=== PATIENT | male | born 1990 | race Caucasian/White ===

== ENCOUNTER 2018-10-04 01:38 | Emergency (ER) | payer MEDICAID ==
[2018-10-04] MEDS ORDERED: FAMOTIDINE 20 MG/NACL 50 ML IV ONE (02:03)
[2018-10-04] MEDS ORDERED: NS 1,000 ML IV ONE ×2 (02:03)
[2018-10-04] MEDS ORDERED: ONDANSETRON 4 MG/2 ML VIAL IVP ONE (02:03)
--- NOTE | 2018-10-04 02:03 | EDPHY ---
H & P Stated Complaint: ABD FLU SX/BLOODY EMESIS TODAY Time Seen by Provider: 10/04/18 02:03 HPI/ROS: HPI CHIEF COMPLAINT: Flu, nausea vomiting. HISTORY OF PRESENT ILLNESS: 27-year-old male, otherwise healthy does have a history of psoriasis but not on any immunomodulators, presents emergency room with nausea vomiting. The patient states that he has been feeling ill for the past 3 days and was diagnosed with the flu at urgent care yesterday influenza a positive. He is on Tamiflu. He reports that he has been vomiting he states he vomited 2-3 times tonight. On his 2nd episode of vomiting he noticed some blood in his vomit. Describes it is dark. He has been drinking lots of fluids. As well as Gatorade. He denies current fever, denies chest pain or shortness of breath, denies productive cough. His main complaint is nausea vomiting and feeling flushed. Past Medical History: Denies significant medical history Past Surgical History: Denies significant surgical history Social History: Smokes tobacco 3 cigarettes per day. Denies illicit drugs or alcohol. Family History: Noncontributory ROS REVIEW OF SYSTEMS: 10 Systems were reviewed and negative with the exception of the elements mentioned in the history of present illness. Exam Constitutional triage nursing summary reviewed, vital signs reviewed, awake/ alert. Vital signs noted at triage. Eyes normal conjunctivae and sclera, EOMI, PERRLA. HENT normal inspection, atraumatic, moist mucus membranes, no epistaxis, neck supple/ no meningismus, no raccoon eyes. Respiratory clear to auscultation bilaterally, normal breath sounds, no respiratory distress, no wheezing. Cardiovascular rate normal, regular rhythm, no murmur, no edema, distal pulses normal. Gastrointestinal soft, non-tender, no rebound, no guarding, normal bowel sounds, no distension, no pulsatile mass. Genitourinary no CVA tenderness. Musculoskeletal no midline vertebral tenderness, full range of motion, no calf swelling, no tenderness of extremities, no meningismus, good pulses, neurovascularly intact. Skin pink, warm, & dry, no rash, skin atraumatic. Neurologic awake, alert and oriented x 3, AAOx3, moves all 4 extremities equally, motor intact, sensory intact, CN II-XII intact, normal cerebellar, normal vision, normal speech. Psychiatric normal mood/affect. Heme/Lymph/Immune no lymphadenopathy. Differential Diagnosis: Differential diagnosis includes but is not limited to and in no particular order: Influenza a, dehydration, electrolyte disturbance, nausea vomiting from Tamiflu, gastritis, Susy-Lazcano tear, peptic ulcer disease, Bowel obstruction, appendicitis, gallbladder disease, diverticulitis, colitis, enteritis, perforated viscus, gastritis, GERD, esophagitis, urinary tract infection, pyelonephritis, kidney stones Medical Decision Making: Plan for this patient IV establishment IV fluid bolus 2 L normal saline, IV Zofran for nausea, IV Pepcid for upset stomach, basic blood work and re-evaluate. Re-evaluation: 1516: Patient re-evaluated this time is feeling much better after IV fluids 2 L normal saline, IV Zofran 4 mg and IV Pepcid . He is asking to drink something. On re-examination abdomen is soft nontender. He is not vomiting he states he feels much better and he would like to go home. I believe it is vomiting is from flu as well as taking Tamiflu. I recommend bland diet over the next 24-48 hours. Return emergency room if worsening abdominal pain, fever, vomiting Patient is comfortable this plan. Source: Patient - Personal History Current Tetanus Diphtheria and Acellular Pertussis (TDAP): No - Medical/Surgical History Hx Asthma: No Hx Chronic Respiratory Disease: No Hx Diabetes: No Hx Cardiac Disease: No Hx Renal Disease: No Hx Cirrhosis: No Hx Alcoholism: No Hx HIV/AIDS: No Hx Splenectomy or Spleen Trauma: No Other PMH: DENIES - Social History Smoking Status: Light smoker Constitutional: Initial Vital Signs Temperature (C) 36.7 C 10/04/18 01:43 Heart Rate 100 10/04/18 01:43 Respiratory Rate 16 10/04/18 01:43 Blood Pressure 139/84 H 10/04/18 01:43 O2 Sat (%) 96 10/04/18 01:43 O2 Delivery Mode Room Air Allergies/Adverse Reactions: Sulfa (Sulfonamide Antibiotics) Allergy (Verified 10/04/18 01:41) Home Medications: Medication Instructions Recorded NK [No Known Home Meds] 10/04/18 Medical Decision Making - Data Points Laboratory Results: Laboratory Results 10/04/18 02:20 10/04/18 02:20 10/04/18 10/04/18 02:20 02:20 WBC 6.56 10^3/uL 10^3/uL (3.80-9.50) RBC 5.57 10^6/uL 10^6/uL (4.40-6.38) Hgb 18.0 g/dL H g/dL (13.7-17.5) Hct 51.4 % H % (40.0-51.0) MCV 92.3 fL fL (81.5-99.8) MCH 32.3 pg pg (27.9-34.1) MCHC 35.0 g/dL g/dL (32.4-36.7) RDW 12.6 % % (11.5-15.2) Plt Count 160 10^3/uL 10^3/uL (150-400) MPV 8.9 fL fL (8.7-11.7) Neut % (Auto) 69.7 % % (39.3-74.2) Lymph % (Auto) 19.7 % % (15.0-45.0) Story % (Auto) 9.6 % % (4.5-13.0) Eos % (Auto) 0.5 % L % (0.6-7.6) Baso % (Auto) 0.3 % % (0.3-1.7) Nucleat RBC Rel Count 0.0 % % (0.0-0.2) Absolute Neuts (auto) 4.58 10^3/uL 10^3/uL (1.70-6.50) Absolute Lymphs (auto) 1.29 10^3/uL 10^3/uL (1.00-3.00) Absolute Monos (auto) 0.63 10^3/uL 10^3/uL (0.30-0.80) Absolute Eos (auto) 0.03 10^3/uL 10^3/uL (0.03-0.40) Absolute Basos (auto) 0.02 10^3/uL 10^3/uL (0.02-0.10) Absolute Nucleated RBC 0.00 10^3/uL 10^3/uL (0-0.01) Immature Gran % 0.2 % % (0.0-1.1) Immature Gran # 0.01 10^3/uL 10^3/uL (0.00-0.10) Sodium 141 mEq/L mEq/L (135-145) Potassium 3.4 mEq/L L mEq/L (3.5-5.2) Chloride 104 mEq/L mEq/L (97-110) Carbon Dioxide 26 mEq/l mEq/l (22-31) Anion Gap 11 mEq/L mEq/L (6-14) BUN 18 mg/dL mg/dL (7-23) Creatinine 0.9 mg/dL mg/dL (0.7-1.3) Estimated GFR > 60 Glucose 103 mg/dL H mg/dL (70-100) Calcium 9.3 mg/dL mg/dL (8.5-10.4) Total Bilirubin 0.8 mg/dL mg/dL (0.1-1.4) Conjugated Bilirubin 0.4 mg/dL mg/dL (0.0-0.5) Unconjugated Bilirubin 0.4 mg/dL mg/dL (0.0-1.1) AST 32 IU/L IU/L (17-59) ALT 39 IU/L IU/L (21-72) Alkaline Phosphatase 62 IU/L IU/L (38-126) Total Protein 7.6 g/dL g/dL (6.3-8.2) Albumin 4.4 g/dL g/dL (3.5-5.0) Lipase 53 IU/L IU/L (23-300) Medications Given: Discontinued Medications Sodium Chloride (Ns) 1,000 mls @ 0 mls/hr IV EDNOW ONE; Wide Open PRN Reason: Protocol Stop: 10/04/18 02:04 Last Admin: 10/04/18 02:18 Dose: 1,000 mls Sodium Chloride (Ns) 1,000 mls @ 0 mls/hr IV EDNOW ONE; Wide Open PRN Reason: Protocol Stop: 10/04/18 02:04 Last Admin: 10/04/18 02:19 Dose: 1,000 mls Famotidine/Sodium Chloride (Pepcid 20 Mg (Premix)) 50 mls @ 200 mls/hr IV EDNOW ONE Stop: 10/04/18 02:17 Last Admin: 10/04/18 02:19 Dose: 50 mls Ondansetron HCl (Zofran) 4 mg IVP EDNOW ONE Stop: 10/04/18 02:04 Last Admin: 10/04/18 02:19 Dose: 4 mg Departure - Departure Disposition: Home, Routine, Self-Care Clinical Impression: Vomiting Condition: Good Instructions: Acute Nausea and Vomiting (ED) Additional Instructions: 1. Bollinger diet over the next 24-48 hours. 2. No spicy fatty greasy foods 3. Tamiflu with food not on an empty stomach 4. Drink lots of fluids stay well-hydrated 5. Return to the emergency room if worsening symptoms Referrals: NONE *PRIMARY CARE P,. [Primary Care Provider] - As per Instructions [facility],. [Clinic] - As per Instructions
[2018-10-04 02:34] LABS: PLATELET COUNT 160 10^3/uL (150-400)
[2018-10-04 04:06] VITALS: BP 136/67
== END 2018-10-04 03:50 | disposition home or self-care (01) ==
DX: R11.2 Nausea with vomiting, unspecified (principal); Z79.2 Long term (current) use of antibiotics
CPT/HCPCS: 96374; J2405